=== PATIENT | male | born 1955 | race Caucasian/White ===

== ENCOUNTER 2017-08-19 16:49 | Observation (INO) | payer OTHER ==
[~2017-08-19] VITALS: Ht 170.2 cm; Wt 78.6 kg
[~2017-08-19 16:49] MED LIST: Amoxicillin PO; CATAPRES0.1 MG PO; MOBIC7.5 MG PO; NOHOMEMEDS; SEROQUEL50 MG PO
[2017-08-19 17:30] LABS: BASOPHIL (%) 0.6 % (0-1); BASOPHIL COUNT 0.1 K/uL (0-0.1); EOSINOPHIL (%) 0.7 % (0-5); EOSINOPHIL COUNT 0.1 K/uL (0-0.3); HEMATOCRIT 45.5 % (38.0-50.0); HEMOGLOBIN 16.3 G/DL (12.5-16.6); IMMATURE GRANULOCYTE (%) 0.5 % (0.0-0.7); LYMPHOCYTE (%) 12.3 % (15-42); LYMPHOCYTE COUNT 1.5 K/uL (1.0-2.8); MCH 31.3 PG (29.0-34.0); MCHC 35.8 G/DL (30.0-36.0); MCV 87.5 FL (86-99); MONOCYTE (%) 3.1 % (3-12); MONOCYTE COUNT 0.4 K/uL (0-0.8); NEUTROPHIL (%) 82.8 % (45-76); NEUTROPHIL COUNT 9.9 K/uL (1.8-6.4); PLATELET COUNT 186 K/uL (156-360); RBC DIS.WIDTH-CV 12.2 % (11.8-14.6); RBC DIS.WIDTH-SD 39.3 % (39-53); WHITE BLOOD COUNT 11.9 K/uL (4.1-10.2)
[2017-08-19 17:34] LABS: APPEARANCE CLEAR ((CLEAR)); BILIRUBIN NEGATIVE; BLOOD NEGATIVE; COLOR STRAW ((YELLOW)); GLUCOSE (STRIP) NEGATIVE; KETONES NEGATIVE; LEUKOCYTES NEGATIVE; NITRITE NEGATIVE; PROTEIN (STRIP) NEGATIVE; SPECIFIC GRAVITY 1.013 (1.000-1.030); UCUL ADDED? NO; UROBILINOGEN 0.2 MG/DL (0.2-1.0)
[2017-08-19 17:38] LABS: AMPHETAMINE NEGATIVE (500 ng/mL); BARBITURATES NEGATIVE (200 ng/mL); BENZODIAZEPINES NEGATIVE (150 ng/mL); BUPRENORPHINE NEGATIVE (10 ng/mL); COCAINE NEGATIVE (150 ng/mL); METHADONE NEGATIVE (200 ng/mL); METHAMPHETAMINE NEGATIVE (500 ng/mL); OPIATES (MORPHINE) NEGATIVE (100 ng/mL); OXYCODONE NEGATIVE (100 ng/mL); PHENCYCLIDINE NEGATIVE (25 ng/mL); PROPOXYPHENE NEGATIVE (300 ng/mL); THC CANNABINOIDS PRESUMPTIVE POSITIVE (50 ng/mL); TRICYCLIC ANTIDEPRESSANTS NEGATIVE (300 ng/mL)
[2017-08-19 17:39] LABS: ALBUMIN 4.3 g/dL (3.2-4.8); CHLORIDE 104 mEq/L (99-109); POTASSIUM 3.7 mEq/L (3.7-5.4); SODIUM 138 mEq/L (136-147)
[2017-08-19 17:42] LABS: GLUCOSE 123 mg/dL (70-99); TOTAL PROTEIN 7.1 g/dL (6.4-8.3)
[2017-08-19 17:43] LABS: TOTAL BILIRUBIN 0.5 mg/dL (0.0-1.0)
[2017-08-19 17:45] LABS: CREATININE 0.9 mg/dL (0.6-1.3); GFR ESTIMATE (CALCULATED) > 59 mL/min/ (58.99-99999); SERUM ETHYL ALCOHOL < 10 mg/dL
[2017-08-19 17:46] LABS: ALKALINE PHOSPHATASE 103 IU/L (3-129)
[2017-08-19 17:47] LABS: AST (GOT) 14 IU/L (2-34); UREA NITROGEN (BUN) 10 mg/dL (9-23)
[2017-08-19 17:49] LABS: ACETAMINOPHEN (TYLENOL) < 10 mcg/mL (10-30); ALT (GPT) 12 IU/L (3-49); SALICYLATE < 5.0 MG/DL (15-30)
[2017-08-19 17:50] LABS: LIPASE 388 U/L (1.0-51.0)
[2017-08-19 17:51] LABS: TROP-I INTERPRETATION NEGATIVE; TROPONIN-I < 0.01 ng/mL (0.0-0.30)
[2017-08-19 23:33] LABS: MAGNESIUM 1.8 mg/dL (1.3-2.7)
[2017-08-20 00:48] VITALS: BP 122/66
[2017-08-20 03:58] VITALS: BP 132/84
[2017-08-20 05:58] LABS: BASOPHIL (%) 0.4 % (0-1); BASOPHIL COUNT 0.1 K/uL (0-0.1); EOSINOPHIL (%) 0.6 % (0-5); EOSINOPHIL COUNT 0.1 K/uL (0-0.3); HEMATOCRIT 44.6 % (38.0-50.0); HEMOGLOBIN 15.2 G/DL (12.5-16.6); IMMATURE GRANULOCYTE (%) 0.3 % (0.0-0.7); LYMPHOCYTE (%) 22.4 % (15-42); LYMPHOCYTE COUNT 2.6 K/uL (1.0-2.8); MCH 30.2 PG (29.0-34.0); MCHC 34.1 G/DL (30.0-36.0); MCV 88.7 FL (86-99); MONOCYTE (%) 4.9 % (3-12); MONOCYTE COUNT 0.6 K/uL (0-0.8); NEUTROPHIL (%) 71.4 % (45-76); NEUTROPHIL COUNT 8.1 K/uL (1.8-6.4); PLATELET COUNT 182 K/uL (156-360); RBC DIS.WIDTH-CV 12.4 % (11.8-14.6); RBC DIS.WIDTH-SD 40.4 % (39-53); RED BLOOD COUNT 5.03 M/uL (4.00-5.50); WHITE BLOOD COUNT 11.4 K/uL (4.1-10.2)
[2017-08-20 06:23] LABS: CHLORIDE 111 MEQ/L (99-109); CREATININE 0.8 MG/DL (0.6-1.3); GFR ESTIMATE (CALCULATED) > 59 mL/min/ (58.99-99999); GLUCOSE 91 mg/dL (70-99); POTASSIUM 3.7 MEQ/L (3.7-5.4); SODIUM 142 MEQ/L (136-147); UREA NITROGEN (BUN) 7 mg/dL (9-23)
[2017-08-20 07:16] VITALS: BP 129/73
[2017-08-20 07:40] LABS: THYROTROPIN (TSH) 0.82 MIU/L (0.4-5.5)
[2017-08-20] MEDS ORDERED: ASPIRIN325 MG PO (08:47)
[2017-08-20 11:16] VITALS: BP 142/65
[2017-08-20] MEDS ORDERED: Thiamine,Vitamin B1 PO (12:27)
[2017-08-20] MEDS ORDERED: FOLIC ACID1 MG PO (12:27)
[2017-08-20] MEDS ORDERED: METOPROLOL TART25 MG PO (12:33)
== END 2017-08-20 13:51 | disposition home or self-care (01) ==
LOC: EME 16:49 → 5SOUTH 22:46 → EDOF 22:46 → ENRESERV 22:49 → 5SOUTH 08-20 00:19
PROVIDERS: Emergency Medicine; Hospitalist
DX: G93.41 Metabolic encephalopathy (principal); K85.90 Acute pancreatitis without necrosis or infection, unspecified; E86.0 Dehydration; F12.90 Cannabis use, unspecified, uncomplicated; F10.21 Alcohol dependence, in remission; R00.0 Tachycardia, unspecified; Z79.82 Long term (current) use of aspirin; I10 Essential (primary) hypertension; H91.90 Unspecified hearing loss, unspecified ear; F32.9 Major depressive disorder, single episode, unspecified; Z88.5 Allergy status to narcotic agent
CPT/HCPCS: 70450; 71045; 74176; 80048; 80053; 81003; 82140; 83690; 83735; 84443; 84484; 84999; 85025; 93005; 99281; 99285; G0378; G0480; J1200; J1630; J1644; J2060; J3411; J7030; J7040; J7120